=== PATIENT | female | born 1970 | race Caucasian/White ===

== ENCOUNTER 2016-12-16 02:20 | Emergency (ER) | payer MEDICAID ==
[~2016-12-16 02:20] MED LIST: ALBUTEROL17 GM INH; B COMPLEX1 CAP; BENADRYL; COLESTID1 G; COLESTID1 GM PO; CYCLOBENZAPRINE10 MG; DIPHENHYDRAMINE; FLONASE16 GM; FLUTICASONE PRO16 GM; GARAMYCIN5 ML RIGHT EYE; IBUPROFEN400 MG; MULTIVITAMIN1 CAP; NORCO; NORCO 5-325 TA1 EACH PO; NORCO 5/325 TAB1 TAB PO; OXYCODONE-APAP; PERCOCET 5/3251 TAB PO; PREDNISONE10 MG PO; PREDNISONE20 MG PO; PROAIR HFA8.5 GM IH; PROVENTIL17 GM; QVAR7.3 G; SINGULAIR10 M1 PO; SKELAXIN800 MG PO; TYLENOL325 MG; VITAMIN B121000 MCG; WAL-ACT TABLET1 EACH PO; ZITHROMAX TRI-500 MG PO; ZITHROMAX250MG Z-PAK PO
[2016-12-16] MEDS ORDERED: CYCLOBENZAPRINE5 M1 PO (02:38)
[2016-12-16] MEDS ORDERED: FLONASE ALLERG9.9 ML (02:40)
== END 2016-12-16 04:20 ==
LOC: EDMED 02:20
DX: M54.5 Low back pain (principal); G89.29 Other chronic pain; Z98.890 Other specified postprocedural states
CPT/HCPCS: J1170; J1885; J3360